=== PATIENT | female | born 1965 | race Caucasian/White ===

== ENCOUNTER 2017-05-07 11:58 | Emergency (ER) | payer BC ==
[~2017-05-07] VITALS: Ht 167.6 cm; Wt 68.0 kg
[~2017-05-07 11:58] MED LIST: CHLO5CAP3 PO; [UNRECOGNIZED DRUG - REMARK] PO
[2017-05-07 11:59] VITALS: BP 126/78; PULSE 105; RESP 20; TEMP 99.9; O2SAT 95
[2017-05-07] MEDS ORDERED: SODIUM CHLORIDE 0.9% FLUSH 10 ML FLUSH IVF PRN (14:00)
[2017-05-07] MEDS ORDERED: RESP: ALBUTEROL 2.5 MG/IPRATROPIUM 0.5 MG NEB (SCH) INH (14:00)
[2017-05-07] MEDS ORDERED: predniSONE 20 MG TAB PO ONE (14:00)
--- NOTE | 2017-05-07 14:00 | PD ---
HPI Chief Complaint: Cold / Flu Symptoms Time Seen by Provider: 13:30 Travel History International Travel<30 days: No Contact w/Intl Traveler<30days: No Traveled to known affect area: No History of Present Illness HPI 51-year-old female presents to the ED for evaluation of 5 day history of cough productive of yellow brown sputum and occasionally streaky hemoptysis. She endorses chills but has not measured a fever at home. She endorses mild sinus congestion, denies rhinorrhea. She states that deep breathing and coughing causes a burning sensation in her lungs. She denies chest pain, palpitations. She denies history of seasonal allergies. She states that she has exercise- induced asthma for which she treats with a rescue inhaler. She denies smoking or occupational exposure to known lung hazards. She endorses several sick contacts. She treated at home with Mucinex and Tessalon with only mild improvement in symptoms. PFSH Past Medical History Fibromyalgia: Yes Immunizations Current: Yes Thyroid Disease: Yes ?: Not Social History Alcohol Use: Yes (3-4 GLASSES OF WINE PER NIGHT) Tobacco Use: No Substance Use: No Allergies-Medications (Allergen,Severity, Reaction): Coded Allergies: penicillin G (Unverified Allergy, Severe, 05/07/17) Reported Meds & Prescriptions Reported Meds & Active Scripts Active Prednisone 20 Mg Tab 20 Mg PO DAILY 5 Days Coditussin AC Liq (Guaifenesin-Codeine Liq) 200-10 Mg/5ML Liqd 5 Ml PO Q4H PRN Proair Hfa 8.5 GM Inh (Albuterol Sulfate) 90 Mcg/Act Aer 1 Puff INH Q4H PRN 108 mcg/actuation Reported Effexor (Venlafaxine HCl) 37.5 Mg Tab 37.5 Mg PO Q12H [place] Thyroid (Thyroid) 120 Mg Tab 120 Mg PO DAILY Review of Systems Except as stated in HPI: all other systems reviewed are Neg Physical Exam Narrative GENERAL: Well-nourished, well-developed white female in no acute distress. SKIN: Warm and dry. HEAD: Normocephalic. Atraumatic. EYES: No scleral icterus. No injection or drainage. PERRLA. EOMI. ENT: Pearly burnette tympanic membranes bilaterally. Right-sided serous effusion. Nasal mucosa is moist. Oropharynx mild posterior erythema. No edema or exudate. NECK: Supple, trachea midline. No JVD or lymphadenopathy. CARDIOVASCULAR: Regular rate and rhythm without murmurs, gallops, or rubs. No carotid bruits. 2+ DP and radial pulses bilaterally. RESPIRATORY: Breath sounds coarse, equal bilaterally. End expiratory wheeze in the left lower lobe. No accessory muscle use. GASTROINTESTINAL: Abdomen soft, non-tender, nondistended. + Bowel sounds MUSCULOSKELETAL: No cyanosis, or edema. BACK: Nontender without obvious deformity. No CVA tenderness. Data Data Last Documented VS Vital Signs Date Time Temp Pulse Resp B/P (MAP) Pulse Ox O2 Delivery O2 Flow Rate FiO2 05/07/17 11:59 99.9 105 20 126/78 (94) 95 Room Air Orders Orders Chest, Pa & Lat (05/07/17 ) Sodium Chloride 0.9% Flush (Ns Flush) (05/07/17 14:00) Albuterol-Ipratropium Neb (Duoneb Neb) (05/07/17 14:00) Prednisone (Deltasone) (05/07/17 14:00) Ed Discharge Order (05/07/17 14:52) MDM Medical Decision Making Medical Screen Exam Complete: Yes Emergency Medical Condition: Yes Differential Diagnosis Viral syndrome versus bronchitis versus pneumonia versus asthma exacerbation versus other Narrative Course 51-year-old female presents to the ED for evaluation of 5 day history of cough productive of yellow brown sputum and occasionally streaky hemoptysis. She endorses chills but has not measured a fever at home. She endorses mild sinus congestion, denies rhinorrhea. She states that deep breathing and coughing causes a burning sensation in her lungs. [place] history of exercise-induced asthma and has been using her rescue inhaler with some improvement of symptoms. She has a emesis basin at bedside. This contains several globules of thick, brown sputum. Vitals reviewed. Temperature 99.9, pulse 105 Physical exam reveals a nontoxic-appearing white female in no acute distress. Chest coarse breath sounds bilaterally with index majority wheezing in the left lower lobe. Patient was administered oral steroids and DuoNeb 2. X-ray reveals no acute infiltrate. However physical exam along with the sputum makes me suspicious for early pneumonia. She is prescribed doxycycline 100 mg twice a day 7 days, prednisone 20 mg 5 days, Tessalon [place] and codeine cough syrup. Her pro-air inhaler refilled. She is instructed take the antibiotics until every pill is gone, return for worsening symptoms. She indicated understanding of instructions and is agreeable to the care plan. The patient is stable and discharged home. Diagnosis Primary Impression: Community acquired pneumonia Qualified Codes: J18.9 - Pneumonia, unspecified organism Referrals: Primary Care Physician Patient Instructions: Community Acquired Pneumonia (ED), General Instructions Med/Other Pt SpecificInfo: Prescription(s) given Scripts Prednisone (Prednisone) 20 Mg Tab 20 MG PO DAILY for 5 Days, #5 TAB 0 Refills Prov: Sanna Landaverde MD 05/07/17 Guaifenesin-Codeine Liq (Coditussin AC Liq) 200-10 Mg/5ML Liqd 5 ML PO Q4H Y, #120 ML 0 Refills Prov: Sanna Landaverde MD 05/07/17 Albuterol 8.5 GM Inh (Proair Hfa 8.5 GM Inh) 90 Mcg/Act Aer 1 PUFF INH Q4H Y for SHORTNESS OF BREATH, #1 INHALER 0 Refills 108 mcg/actuation Prov: Sanna Landaverde MD 05/07/17 Disposition: 01 DISCHARGE HOME Condition: Stable Annie Starks May 07, 2017 14:00
[2017-05-07] MEDS ORDERED: ALBUAER3 INH (14:03)
[2017-05-07] MEDS ORDERED: DOXY100C PO (14:03)
[2017-05-07] MEDS ORDERED: PRED20 PO (14:03)
[2017-05-07] MEDS ORDERED: GUAI1LIQ13 PO (14:03)
[2017-05-07] MEDS ORDERED: VENL37.5 PO (14:15)
[2017-05-07] MEDS ORDERED: ARMO120T PO (14:15)
--- NOTE | 2017-05-07 14:36 | RADRPT ---
EXAM DATE/TIME: 05/07/2017 13:08 [facility] COMPARISON: No previous studies available for comparison. INDICATIONS : Cough for 4 days. MEDICAL HISTORY : Asthma. SURGICAL HISTORY : None. ENCOUNTER: Initial ACUITY: 4 - 6 days PAIN SCORE: 0/10 LOCATION: Bilateral chest FINDINGS: PA and lateral views of the chest demonstrate the lungs to be symmetrically aerated without evidence of mass, infiltrate or effusion. The cardiomediastinal contours are unremarkable. Right clavicle fix ation hardware in place. Osseous structures are intact. CONCLUSION: 1. No acute cardiopulmonary disease. Markie Calle MD on May 07, 2017 at 14:15 Board Certified Radiologist. This report was verified electronically.
== END 2017-05-07 15:12 | disposition home or self-care (01) ==
LOC: NEPK 11:58
DX: J18.9 Pneumonia, unspecified organism (principal); J45.990 Exercise induced bronchospasm
CPT/HCPCS: 71046; 94640; 94664; 99284; J7512